=== PATIENT | male | born 1975 | race African-American/Black ===

== ENCOUNTER 2020-02-22 11:10 | Emergency (ER) | payer OTHER ==
[2020-02-22] MEDS ORDERED: SODIUM CHLORIDE 0.9% 1000 ML INFUS.BAG IV ONE (11:24)
[2020-02-22] MEDS ORDERED: morphine CARPU-JECT 4 MG/1 ML DISP.SYRIN IVPUSH ONE (11:24)
[2020-02-22] MEDS ORDERED: ONDANSETRON 4 MG/2 ML VIAL IVPUSH ONE (11:24)
[2020-02-22] MEDS ORDERED: FAMOTIDINE 20 MG/50 ML IVPB 20 MG/50 ML MG IVPB ONE (11:24)
--- NOTE | 2020-02-22 11:36 | PDOC ---
History of Present Illness - General Chief Complaint: Pain Stated Complaint: ABD PAIN Time Seen by Provider: 02/22/20 11:14 - History of Present Illness Initial Comments: 02/22/20 12:13 44yo male with pmhx of UC and kidney stones presents for eval of acute onset of L sided abd pain. States pain started last night. States it came out of no where and was sharp L sided pain similar to his UC flares in the past. States he had nbnb vomiting all night - but none today. Pt states he follows with a Dr. 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 Pt states he is usually well controlled on bentyl, vicodin prn, and donnatol for his abd pain. States he used his vicodin as instructed last night, but the pain persisted. States his last hospitalization was 2 years ago at [facility]. States his last colonoscopy was about a month ago and was "normal". Pt denies f/c. No cp/sob. No dysuria. Pt admits to tobacco use occasionally, denies etoh use, admits to medical marijuana use. Pt denies all other complaints. Pshx: hernia repair (right) All: nkda Past History - Medical History Allergies/Adverse Reactions: Allergies Allergy/AdvReac Type Severity Reaction Status Date / Time No Known Allergies Allergy Verified 02/22/20 11:17 Home Medications: Ambulatory Orders Hydrocodone/Acetaminophen [Vicodin Es 7.5-300 mg Tablet] 1 each PO ASDIR 02/22/20 Magnesium mg PO ASDIR 02/22/20 Omeprazole 20 mg PO ASDIR 02/22/20 Phenobarb/Hyoscy/Atropine/Scop [ Tablet] 16.2 mg PO ASDIR 02/22/20 COPD: No GI Disorders: Yes (IBD, ULCERATIVE COLITIS) - Surgical History Abdominal Surgery: Yes (INGUINAL HERNIA SX) - Psycho-Social/Smoking History Smoking History: Never smoked Have you smoked in the past 12 months: No Information on smoking cessation initiated: No - Substance Abuse Hx (Audit-C & DAST Scrn) How often the patient has a drink containing alcohol: Never Score: In Men: 4 or > Positive; In Women: 3 or > Positive: 0 Screen Result (Pos requires Nsg. Audit-10AR): Negative In the last yr the pt used illegal drug/Rx for NonMed reason: No Score: Yes response is considered Positive: 0 Screen Result (Positive result requires Nsg. DAST-10): Negative Review of Systems - Review of Systems Able to Perform ROS?: Yes Is the patient limited Jamaican proficient: No Constitutional: No: Chills, Fever HEENTM: No: Eye Pain, Nose Pain, Nose Congestion Respiratory: No: Cough, Shortness of Breath Cardiac (ROS): No: Chest Pain, Lightheadedness, Palpitations ABD/GI: Yes: Constipated, Nausea, Vomiting, Abdominal cramping. No: Diarrhea : No: Burning, Dysuria, Frequency Musculoskeletal: Yes: Back Pain Integumentary: No: Rash Neurological: No: Headache, Numbness, Paresthesia, Tremors, Weakness, Ataxia, Dizziness All Other Systems: Reviewed and Negative *Physical Exam - Vital Signs Last Vital Signs Temp Pulse Resp BP Pulse Ox 98.7 F 71 18 160/97 99 02/22/20 11:10 02/22/20 11:10 02/22/20 11:10 02/22/20 11:10 02/22/20 11:10 - Physical Exam General Appearance: Yes: Nourished, Appropriately Dressed, Moderate Distress, Other (colicky pain, rocking on the stretcher, can't get comfortable) HEENT: positive: EOMI, Normal Voice. negative: Rhinorrhea Neck: positive: Supple Respiratory/Chest: positive: Lungs Clear, Normal Breath Sounds. negative: Chest Tender, Respiratory Distress Cardiovascular: positive: Regular Rhythm, Regular Rate, S1, S2. negative: Edema Gastrointestinal/Abdominal: positive: Soft, Tenderness (RLQ, LLQ, LUQ). negative: Guarding, Rebound Musculoskeletal: positive: CVA Tenderness (R). negative: CVA Tenderness (L) Extremity: negative: Swelling, Calf Tenderness Integumentary: positive: Normal Color, Dry, Warm Neurologic: positive: Fully Oriented, Alert, Normal Mood/Affect, Other (ambulatory in the ER with a steady gait) Heart Score/ECG Review - ECG Intrepretation Comment:: 02/22/20 12:21 sinus at 63, nl axis, nl interval, no acute st/t wave findings, borderline lvh ED Treatment Course - LABORATORY CBC & Chemistry Diagram: 02/22/20 11:35 02/22/20 11:35 - RADIOLOGY Radiology Studies Ordered: Category Date Time Status ABDOMEN & PELVIS CT WITH CONTR [CT] Stat CT Scan 02/22/20 11:26 Ordered CHEST X-RAY PORTABLE* [RAD] Stat Radiology 02/22/20 11:24 Taken Medical Decision Making - Medical Decision Making 02/22/20 12:21 a/p: 44yo male with acute onset of abd pain -pt with both R cva ttp and L sided abd pain - poss UC flare vs renal colic vs sbo -denies urinary complaints, denies blood in stool -pt states he sees pain management -states he ran out of his vicodin that he uses for emergency reasons this AM and still had abd pain -pt states he can take up to 12 vicodin in 1 day for acute onset of pain and uses medical marijuana daily -hx of hernia repair, given acute onset of pain and n/v will send labs, ekg, cxr, ct abd/pelvis -will keep npo -pain control, nausea control, ivf -will monitor and reassess 02/22/20 12:23 no elevates wbc hgb stable lactate pending ua shows ketones and trace blood ct pending 02/22/20 12:24 cxr clear pt still with pain, will give toradol 02/22/20 12:33 discussed labs with the patient pt states feeling better after toradol, nausea resolved, resting comfortably in the stretcher 02/22/20 13:[address] liver on ct without other acute findings lactate and lipase pending will po challenge 02/22/20 13:31 pt states he feels better lipase and lactate pending states he wants to leave and wants to sign ama states "you did a good job, you treated my pain and now i am ready to leave" discussed importance of lactate and lipase in his workup for abd pain discussed fatty liver changes pt states his girlfriend is waiting outside and he wants to leave states he wants to sign out ama Note: The patient insists on leaving the emergency dept and is signing out against medical advice. The patient understands the risks and complications that may result from the refusal of medical care and admission which includes and permanent disability. The patient has the mental capacity of understanding the risks of refusing care and is capable of making an informed decision. The patient was instructed to return to the emergency department should he change his mind regarding medical care or should his condition worsen. The patient signed the Against Medical Advice form. 02/22/20 13:35 pt has signed AMA paperwork Discharge - Discharge Information Problems reviewed: Yes Clinical Impression/Diagnosis: Abdominal pain, Fatty liver Condition: Unchanged/Unknown Disposition: AGAINST MEDICAL ADVICE - Admission No - Follow up/Referral Referrals: rahel Rizzo [Other] - Patient Discharge Instructions Patient Printed Discharge Instructions: DI for Abdominal Pain-Adult Additional Instructions: Please call your GI specialist to schedule a close follow up. Please take all your medications as prescribed. Your lactate and lipase labs are still pending and those results are not known at this time, so your workup is not complete. Please return to the ER with any further concerns or complaints. - Post Discharge Activity
[2020-02-22 11:53] LABS: EOS % 0.1 % (0-4.5); MONO % 3.4 % (3.8-10.2)
[2020-02-22 12:01] LABS: ALBUMIN 4.5 g/dl (3.4-5.0); BILIRUBIN,TOTAL 1.6 mg/dl (0.2-1); CALCIUM 9.8 mg/dl (8.5-10); CREATININE 0.8 mg/dl (0.55-1.3); MAGNESIUM 1.9 mg/dL (1.8-2.4); POTASSIUM 3.9 mmol/L (3.5-5.1); TOT PROT 7.3 g/dl (6.4-8.2)
[2020-02-22 12:04] VITALS: BP 160/97; PULSE 71; TEMP 98.7; BMI 40.1
[2020-02-22 12:09] LABS: BASO % 3.8 % (0-2.0); HEMOGLOBIN 15.6 GM/dl (11.7-16.9); LYMPH % 10.4 % (8-40); MCH 30.9 pg (25.7-33.7); MCHC 34.7 g/dl (32.0-35.9); MEAN CELL VOLUME 89.2 fl (80-96); MEAN PLT VOLUME 9.1 fl (7.5-11.1); NEUT % 82.3 % (42.8-82.8); PLATELET COUNT 242 K/MM3 (134-434); RBC 5.04 M/mm3 (4.00-5.60); RDW 11.9 % (11.9-15.9); WHITE BLOOD COUNT 9.5 K/mm3 (4.0-10.8)
--- NOTE | 2020-02-22 12:10 | EKG ---
Test Reason : Blood Pressure : / mmHG Vent. Rate : 063 BPM Atrial Rate : 063 BPM P-R Int : 124 ms QRS Dur : 088 ms QT Int : 404 ms P-R-T Axes : 048 044 020 degrees QTc Int : 413 ms NORMAL SINUS RHYTHM MINIMAL VOLTAGE CRITERIA FOR LVH, MAY BE NORMAL VARIANT BORDERLINE ECG NO PREVIOUS ECGS AVAILABLE Confirmed by Oscar Walton ([id number]) on 02/22/2020 12:09:31 PM Referred By: MD FRANKLIN Confirmed By:Oscar Walton
[2020-02-22 12:11] LABS: ACTIVATED PTT 25.4 SECONDS (25.2-36.5)
[2020-02-22 12:15] LABS: INR 1.22 (0.82-1.09); PROTHROMBIN TIME (PATIENT) 13.6 SEC (10.2-13.0)
[2020-02-22] MEDS ORDERED: KETOROLAC TROMETHAMINE 30 MG/1 ML VIAL IVPUSH ONE (12:17)
[2020-02-22] MEDS ORDERED: HYOSCYAMINE SULFATE 0.125 MG *ODT PO ONE (12:19)
[2020-02-22 12:47] LABS: EPITHELIAL CELLS RARE /hpf; URINE MUCUS 1+
== END 2020-02-22 13:40 | disposition left against medical advice (07) ==
LOC: FER 11:10
PROC: 3E033GC Introduction of Other Therapeutic Substance into Peripheral Vein, Percutaneous Approach (ICD-10-PCS; principal; 2020-02-22)
DX: R10.12 Left upper quadrant pain (principal); R10.32 Left lower quadrant pain; K76.0 Fatty (change of) liver, not elsewhere classified
CPT/HCPCS: 36415; 71045-TC-FY; 74177-TC; 80053; 81003; 81015; 83605; 83690; 83735; 85025; 85610; 85730; 93005; 99285-25; Q9967